=== PATIENT | female | born 1970 | race Asian ===

== ENCOUNTER 2017-04-30 13:28 | Emergency (ER) | payer OTHER ==
[~2017-04-30] VITALS: Ht 157.5 cm; Wt 52.2 kg
[2017-04-30 16:30] VITALS: BP 114/72
== END 2017-04-30 16:30 | disposition home or self-care (01) ==
LOC: ED 13:28
DX: Z77.21 Contact with and (suspected) exposure to potentially hazardous body fluids (principal)
CPT/HCPCS: 36415